=== PATIENT | female | born 1985 | race Caucasian/White ===

== ENCOUNTER 2018-12-29 20:40 | Emergency (ER) | payer OTHER ==
[2018-12-29 21:09] VITALS: BP 120/68; PULSE 63; RESP 18; TEMP 98; O2SAT 100
--- NOTE | 2018-12-29 21:28 | ED PDOC ---
Lower Extremity Pain/Injury Time Seen by Provider: 12/29/18 21:15 Chief Complaint (Nursing): Lower Extremity Problem/Injury Chief Complaint (Provider): Lower Extremity Problem/Injury History Per: Patient History/Exam Limitations: no limitations Onset/Duration Of Symptoms: Days Current Symptoms Are (Timing): Still Present Additional Complaint(s): 33 year old female with a past medical history of hypothyroidism who is presenting to the ED for evaluation of left knee. Patient states that she was sent here from [facility] after she presented for evaluation of left knee swelling. X-Ray at [facility] was negative and was sent here to rule out DVT. Patient offers no other medical complaints at this time. PMD: Dixon Mcgovern Past Medical History Reviewed: Historical Data, Nursing Documentation, Vital Signs Vital Signs: Last Vital Signs Temp 98 F 12/29/18 21:07 Pulse 63 12/29/18 21:07 Resp 18 12/29/18 21:07 BP 120/68 12/29/18 21:07 Pulse Ox 100 12/29/18 21:07 - Medical History PMH: Hypothyroidism - Surgical History Surgical History: No Surg Hx - Family History Family History: States: Unknown Family Hx - Social History Current smoker - smoking cessation education provided: No Alcohol: None Drugs: Denies - Home Medications Home Medications: Ambulatory Orders Medication Instructions Recorded Naproxen 375 mg PO Q8 PRN #21 tablet 12/29/18 - Allergies Allergies/Adverse Reactions: Allergies Allergy/AdvReac Type Severity Reaction Status Date / Time No Known Allergies Allergy Verified 12/29/18 21:07 Review of Systems ROS Statement: Except As Marked, All Systems Reviewed And Found Negative Musculoskeletal: Positive for: Leg Pain (knee swelling ) Physical Exam - Reviewed Nursing Documentation Reviewed: Yes Vital Signs Reviewed: Yes - Physical Exam Appears: Positive for: Well, Non-toxic, No Acute Distress Head Exam: Positive for: ATRAUMATIC, NORMAL INSPECTION, NORMOCEPHALIC Skin: Positive for: Normal Color, Warm Eye Exam: Positive for: Normal appearance Cardiovascular/Chest: Positive for: Regular Rate, Rhythm. Negative for: Murmur Respiratory: Positive for: Normal Breath Sounds. Negative for: Respiratory Distress Extremity: Positive for: Normal ROM. Negative for: Deformity, Swelling Neurologic/Psych: Positive for: Alert, Oriented. Negative for: Motor/Sensory Deficits - ECG O2 Sat by Pulse Oximetry: 100 (RA) Pulse Ox Interpretation: Normal Medical Decision Making Medical Decision Making: Time: 21:17 Plan: --Ultrasound Left Lower Extremity Scribe Attestation: Documented by, Adeline Holt acting as a scribe for Darian Phoenix PA-C. Provider Scribe Attestation: All medical record entries made by the Scribe were at my direction and personally dictated by me. I have reviewed the chart and agree that the record accurately reflects my personal performance of the history, physical exam, medical decision making, and the department course for this patient. I have also personally directed, reviewed, and agree with the discharge instructions and disposition. Time: 2151 US RESULTS FINDINGS: DEEP VEINS: The common femoral, superficial femoral, and popliteal veins are echolucent and compressible. There is normal color Doppler flow throughout. The visualized calf veins appear patent. SUPERFICIAL VEINS: The visualized greater saphenous vein is patent. SOFT TISSUES: No popliteal fossa cyst or other abnormalities. IMPRESSION: No deep venous thrombosis evident on left lower extremity examination. Electronically signed on Dec 29, 2018 9:52:47 PM EST by: Peng Menendez M.D., TOBY Certified By [facility] Fellowship Trained MRI and CT Specialist Disposition - Clinical Impression Clinical Impression: Bursitis - Patient ED Disposition Is Patient to be Admitted: No - Disposition Referrals: Dixon Mcgovern MD [Primary Care Provider] - Reese Cramer III, MD [Staff Provider] - Disposition: Routine/Home Disposition Time: 22:39 Condition: FAIR Prescriptions: Naproxen 375 mg PO Q8 PRN #21 tablet PRN Reason: Pain, Moderate (4-7) Instructions: Bursitis (DC)
--- NOTE | 2018-12-30 11:43 | US ---
Date of service: 12/29/2018 HISTORY: R/O DVT. PRIORS: None. FINDINGS: 2-D, color and duplex Doppler analysis of the lower extremity venous circulation using routine protocol from the femoral veins through the popliteal veins. Venous compressibility: Normal. Flow and augmentation patterns: Normal. Visualized veins upper third of calf: Normal. Corona cyst: None. Fluid collection anterior left knee corresponding to area of interest on physical examination. This measures 3.7 x 5.5 cm and contains fluid as well as debris. IMPRESSION: No sonographic or Doppler evidence for DVT in left lower extremity. Soft tissue swelling/cystic mass corresponding to area of interest on physical examination. Concordant findings (preliminary report) provided by [facility].
== END 2018-12-29 22:55 | disposition home or self-care (01) ==
LOC: H.ER 20:40
DX: M70.52 Other bursitis of knee, left knee (principal); E03.9 Hypothyroidism, unspecified